=== PATIENT | female | born 1990 | race Caucasian/White ===

== ENCOUNTER 2019-03-04 13:31 | Emergency (ER) | payer OTHER, SELFPAY ==
[2019-03-04 13:32] VITALS: BP 165/95; PULSE 89; RESP 16; TEMP 36.8; O2SAT 97; BMI 34.0
--- NOTE | 2019-03-04 14:24 | CT_ITS ---
STUDY: CT BRAIN WITHOUT CONTRAST REASON FOR EXAM: Female, 29 years old. RADIATION DOSAGE (If Supplied By Facility): CTDIvol = ( 44.99 ) mGy, DLP = ( 779.24 ) mGycm TECHNIQUE: Transaxial CT imaging of the brain was performed without administration of intravenous contrast material. Individualized dose optimization techniques were used for this CT. COMPARISON: No relevant priors. FINDINGS: Normal soft tissue structures. Intact skull base and calvarium. Normal size ventricles and extra-axial spaces for the patient's age. Normal white matter tracts of the cerebral hemispheres. Normal basal ganglia and thalami. Normal brainstem. Normal cerebellum. There is no intracranial hemorrhage. There are no findings of an acute ischemic infarction. There is minimal air-fluid level within the right maxillary sinus. The rest of the sinuses including mastoid air cells and orbits are unremarkable CT/Brain/Head without Contrast IMPRESSION: Negative study except for minimal air fluid level right maxillary sinus. Electronically Signed: Summer Lacey, at 15:04 EDT Tel , Service support ,
--- NOTE | 2019-03-04 14:26 | ED.VIS.INJ ---
History of Present Illness Chief Complaint: Fall Informant: Patient Onset: Yesterday - around 18 hrs [employer] Mechanism/Context: Fall, Trip Quality of Pain: Aching Location: head, right buttock, right upper arm, mid-back Current Severity: Moderate Maximum Severity: Moderate Worsened by: sitting Relieved by: leaving affected areas alone Associated Symptoms: - - nausea, headache. Negative for: Parasthesias, Weakness, Loss of function, Inability to ambulate, Loss of consciousness, Amnesia Narrative: Patient was walking down some narrow, old ceramic tile steps and slipped, while taking the garbage out. She fell back and hit the right side of her head, in addition to her right buttock and her right upper arm. She has been having pain since then but did not feel nauseated until this morning. She feels very nauseated right now. She has not vomited. No focal neurologic symptoms. No shortness of breath or pleuritic discomfort with regards to her mid back pain. - Past Medical History (1) Seasonal allergies Status: Chronic (2) Anxiety Status: Chronic Past Medical History - Allergies and Home Meds Allergies/Adverse Reactions: Allergies mushroom Allergy (Verified 03/04/19 13:35) Anaphylaxis Sulfa (Sulfonamide Antibiotics) Allergy (Verified 03/04/19 13:35) Unknown BLUE CHEESE Allergy (Uncoded 03/04/19 13:35) Anaphylaxis Primary Care Physician: Yanick Jacobo MD [Primary Care Provider] - Smoking Status: Never smoker Drugs: None Review of Systems General: Denies: Chills, Fever Eyes: Denies: Visual changes - bilaterally, Diplopia ENT: Denies: Rhinorrhea, Sore throat Cardiovascular: Denies: Chest pain, Palpitations Respiratory: Denies: Dyspnea, Cough, Dyspnea on exertion Gastrointestinal: Reports: Nausea. Denies: Abdominal pain, Vomiting, Diarrhea, Melena, Hematochezia Musculoskeletal: Reports: Back pain, Extremity Pain Skin: Reports: Abrasions, Wounds Neurological: Reports: Headache. Denies: Weakness, Parasthesia, Numbness Physical Exam Vital Signs/Narrative: Vital Signs Temp Pulse Resp BP Pulse Ox 03/04/19 13:32 98.2 F 89 16 165/95 H 97 Inital Vital Signs reviewed: Yes General: Well nourished, Well developed Head: Normocephalic, Atraumatic Eyes: Perrl, EOMI ENT: TM's clear, No hemotympanum or drainage, No trauma Neck: Nontender, Full ROM Abdomen: Soft, Nontender, Nondistended, Normal bowel sounds Back: Paraspinal Tenderness. Negative for: Spinal Tenderness Extremeties: Full range of motion throughout all 4 extremities. Mildly tender contusion right mid upper arm. Tender right buttock soft tissue, no bony pelvic tenderness. No spinal tenderness in the back, tender in the left paraspinal musculature, mid thoracic. No crepitance or deformity. No evidence of trauma at the mid back area. Skin: Normal color, No rash, Trauma - large contusion w/o hematoma right buttock without sacral tenderness. small contusion/abrasion right lateral mid-upper arm Neurological: Alert, Oriented x3, Cranial nerves II-XII grossly intact, Normal Strength, Normal Sensation, Normal Gait Psychological: Normal affect, Normal Mood - Coma Scale Eye Opening: Spontaneous Motor: Obeys Commands Verbal: Oriented Coma Scale Total: 15 Diagnostic/Tx/Re-eval Clinical Impression(s) from Imaging Studies Brain CT 03/04/19 14:24 IMPRESSION: Negative study except for minimal air fluid level right maxillary sinus. Electronically Signed: Summer Lacey, at 15:04 EDT Tel , Service support , - Medical Decision Making CT had negative. I do not think she needs radiography of the other areas and she is in agreement. She was given Tylenol and Zofran here and a prescription for Zofran, reassured with regards to her head injury, if her symptoms last more than a week she should follow-up with the doctor and take Tylenol and ibuprofen as needed in the meantime. ED Disposition - Plan for ED Patient: Disposition: Home or Assisted Living Diagnosis: Concussion without loss of consciousness, initial encounter, Contusion, buttock, Contusion of right upper arm, initial encounter, Fall from slip, trip, or stumble Instructions: HEAD INJURY, No Wake-Up (Adult) Referrals: Yanick Jacobo MD [Primary Care Provider] - 1 Week if not improving
[2019-03-04] MEDS: Acetaminophen 500 MG Tablet 1000 MG PO (14:29)
[2019-03-04] MEDS: Ondansetron ODT 4 MG Tablet 8 MG PO (14:30)
[2019-03-04 15:32] VITALS: RESP 14
--- NOTE | 2019-03-04 15:33 | ED.RN ---
REVIEWED D/C INSTRUCTIONS, FOLLOW UP CARE, AND S/S THAT WOULD WARRANT A RETURN TO THE ED WITH PT. PT VERBALIZED AN UNDERSTANDING AND DENIES FURTHER QUESTIONS FOR THIS RN. PT SKIN P/W/D, RESP EVEN AND UNLABORED, PT A&O X 3, NO DISTRESS NOTED. PT AMBULATED OUT OF ED, GAIT STEADY.
== END 2019-03-04 15:34 | disposition home or self-care (01) ==
PROVIDERS: Emergency Provider Emergency Medicine; Family Provider Internal Medicine; PCP Internal Medicine
DX: S06.0X0A Concussion without loss of consciousness, initial encounter (principal); S40.021A Contusion of right upper arm, initial encounter; S40.811A Abrasion of right upper arm, initial encounter; S30.0XXA Contusion of lower back and pelvis, initial encounter; R40.2410 Glasgow coma scale score 13-15, unspecified time; W10.9XXA Fall (on) (from) unspecified stairs and steps, initial encounter; Y93.01 Activity, walking, marching and hiking; Y92.9 Unspecified place or not applicable; F41.9 Anxiety disorder, unspecified; Z79.899 Other long term (current) drug therapy
CPT/HCPCS: 70450; 99283

== ENCOUNTER → 2020-04-05 09:27 | Outpatient (CLI) | payer OTHER, SELFPAY ==
[2020-02-10 11:33] VITALS: BMI 36.6
== END ==
PROVIDERS: PCP Internal Medicine
DX: J06.9 Acute upper respiratory infection, unspecified (principal)
CPT/HCPCS: 87635; 94799; U0003

== ENCOUNTER → 2020-06-16 17:56 | Outpatient (CLI) | payer OTHER, SELFPAY ==
[2020-02-10 11:33] VITALS: BMI 36.6
== END ==
PROVIDERS: PCP Internal Medicine
DX: B34.9 Viral infection, unspecified (principal); Z71.89 Other specified counseling
CPT/HCPCS: 87635; C9803; U0003

== ENCOUNTER 2021-04-23 12:03 | Emergency (ER) | payer OTHER, SELFPAY ==
[2020-02-10 11:33] VITALS: BMI 36.6
[2021-04-23 12:04] VITALS: BP 128/98; PULSE 100; RESP 16; TEMP 36.5; O2SAT 100; BMI 32.1
--- NOTE | 2021-04-23 12:34 | RAD_ITS ---
STUDY: X-RAY - LEFT ANKLE REASON FOR EXAM: Female, 31 years old. injury TECHNIQUE: 3 view(s) of the ankle. COMPARISON: None. FINDINGS: Normal visualized distal tibia and fibula. Normal medial and lateral malleoli. Normal tibiotalar articulation and ankle mortise. Normal visualized talus and calcaneus. The visualized subtalar, talonavicular, calcaneocuboid and tarsal articulations are normal. Lateral soft tissue swelling consistent with ligamentous injury. RAD/Ankle min 3 Views IMPRESSION: No acute fracture or dislocation. Lateral soft tissue swelling consistent with ligamentous injury. Electronically Signed: Alejandro Jiang MD at 13:17 EDT Tel , Service support ,
--- NOTE | 2021-04-23 12:34 | RAD_ITS ---
STUDY: X-RAY - LEFT TIBIA AND FIBULA REASON FOR EXAM: Female, 31 years old. injury TECHNIQUE: 2 view(s) of the tibia and fibula were obtained. COMPARISON: None. FINDINGS: Normal visualized tibia. Normal visualized fibula. The soft tissue structures are unremarkable. RAD/Tibia & Fibula 2 Views IMPRESSION: Normal x-ray examination of the tibia and fibula. Electronically Signed: Alejandro Jiang MD at 13:17 EDT Tel , Service support ,
[2021-04-23] MEDS: HYDROcodone Bitartrate/Apap 5/325 Tablet PO (12:49)
--- NOTE | 2021-04-23 14:14 | ED.VIS.LOWEX ---
HPI History of Present Illness HPI Narrative: Patient is a 31-year-old female who states she was camping yesterday. She reports she was walking back to her tent when she stepped in a hole and rolled her left ankle inward. She denies any other trauma such as striking her head or falling. She states she is able to walk on the left leg but has been painful to do so. She reports that with the increased pain and swelling she is concerned that she may have broken the left ankle and therefore comes in for evaluation. Chief Complaint: Lower Extremity Injury PFSH PFS Medical History (Updated 04/23/21 @ 14:[address] 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 Gastritis Left ear hearing loss Lumbar radiculopathy Obesity Paroxysmal supraventricular tachycardia Seasonal allergies Thyroid nodule Home Medications cetirizine 10 mg PO DAILY 03/04/19 [History Last Taken Unknown] fluticasone propionate 2 spray NASAL DAILY 03/04/19 [History Last Taken Unknown] hydrocodone-acetaminophen 1 tab PO Q6H PRN 3 Days #12 tab 04/23/21 [Rx Last Taken Unknown] Allergy/AdvReac Type Severity Reaction Status Date / Time mushroom Allergy Anaphylaxis Verified 04/23/21 12:06 Sulfa (Sulfonamide Allergy Unknown Verified 04/23/21 12:06 Antibiotics) BLUE CHEESE Allergy Anaphylaxis Uncoded 04/23/21 12:06 Family History Mother Hypertension Father Hypertension Other Heart disease Surgical History History of tonsillectomy History of tooth extraction History of tympanoplasty Social History (Updated 02/10/20 @ 11:[address] Juan Gillis MD) Smoking Status: Former smoker quit date: 06/10/14 alcohol intake: current alcohol intake frequency: 0-2 drinks per day ROS ROS ED Constitutional Constitutional ED: Denies fever(s) or subjective ENT ENT ED: Denies sore throat Cardiovascular Cardiovascular: Denies chest pain or palpitations Respiratory/Chest Respiratory/Chest: Denies cough Gastrointestinal Gastrointestinal: Denies abdominal pain, nausea or vomiting Genitourinary Genitourinary ED: Denies dysuria Musculoskeletal Musculoskeletal: Reports other Details: Positive left ankle pain Integumentary Denies Abrasions Neurologic Neurologic: Denies headache(s) or weakness Hematologic/Lymphatic Hematologic/Lymphatic: Denies easy bleeding or easy bruising EXAM Physical Exam Const Vital Signs: 04/23/21 12:04 Temperature 97.7 F L Temperature Source Temporal Pulse Rate 100 Respiratory Rate 16 Blood Pressure 128/98 H Blood Pressure Mean 108 Pulse Ox 100 Oxygen Delivery Method Room Air HEENT normocephalic and atraumatic Eyes PERRL Neck full ROM and supple Chest Wall inspection of chest normal Resp normal respiratory effort and clear to auscultation bilaterally Cardio regular rate, regular rhythm and no murmurs Extremity Extremity Narrative: Left lower extremity is neurovascularly intact. Patient has soft tissue swelling towards the lateral aspect of the left distal ankle. There is no obvious bony deformity or joint effusion. She has pain on palpation along the distal fibula on the left as well. There is also pain on palpation along the proximal tibia/fib region on the left. Achilles tendon is intact. There appears to be slight laxity with inversion of the left ankle compared to right. No pain or deformity or swelling to the feet Neuro oriented x3 and CN's II-XII intact bilaterally Sensorium / Orientation: alert and oriented to person Psych mental status grossly normal Skin Skin Narrative: Patient has soft tissue swelling to the left ankle with ecchymosis to the tib-fib region as documented above on the left Rashes: no rashes MDM MDM MDM Narrative Medical decision making narrative: Patient had a mechanical fall therefore there is no need to perform a cardiac or syncope work-up. X-rays were obtained of the areas are painful and show no acute fracture or dislocation. As patient has mild laxity of the left ankle compared to right I do feel she has a grade 2 ankle sprain. We discussed walking boot and/or crutches. Patient states she has a brace at home and does not want these. Therefore this time patient was advised to wear her brace for the next few weeks be placed on a few days with the pain meds and is safe for discharge. Radiography Diagnostic Testing: Radiology Impression Ankle X-Ray 04/23/21 12:34 IMPRESSION: No acute fracture or dislocation. Lateral soft tissue swelling consistent with ligamentous injury. Electronically Signed: Alejandro Jiang MD at 13:17 EDT Tel , Service support , Tibia/Fibula X-Ray 04/23/21 12:34 IMPRESSION: Normal x-ray examination of the tibia and fibula. Electronically Signed: Alejandro Jiang MD at 13:17 EDT Tel , Service support , Discharge Plan Triage Chief Complaint: Lower Extremity Injury ED Provider: Jim Moody Dx/Rx/DC Orders Clinical Impression: Left ankle sprain Instructions: ED Ankle Sprain (Adult) Prescriptions: New hydrocodone-acetaminophen 5-325 mg tablet 1 tab PO Q6H PRN (Reason: pain) 3 Days Qty: 12 RF: 0 No Action fluticasone propionate 1 SPRAY spray,suspension 2 spray NASAL DAILY RF: 0 cetirizine 10 MG capsule 10 mg PO DAILY RF: 0 Primary Care Provider: Yanick Jacobo Referrals: Yanick Jacobo MD [Primary Care Provider] - Disposition Disposition: Home, Self Care
[2021-04-23 14:28] VITALS: BP 143/100; PULSE 74; RESP 16; O2SAT 100
== END 2021-04-23 14:28 | disposition home or self-care (01) ==
PROVIDERS: Emergency Provider Emergency Medicine; PCP Internal Medicine
DX: S93.402A Sprain of unspecified ligament of left ankle, initial encounter (principal); X50.1XXA Overexertion from prolonged static or awkward postures, initial encounter; Y93.01 Activity, walking, marching and hiking; Y92.9 Unspecified place or not applicable; E66.9 Obesity, unspecified; Z68.32 Body mass index [BMI] 32.0-32.9, adult; H91.92 Unspecified hearing loss, left ear; M54.16 Radiculopathy, lumbar region; Z87.19 Personal history of other diseases of the digestive system; Z87.891 Personal history of nicotine dependence
CPT/HCPCS: 73590; 73610; 99283

== ENCOUNTER 2021-10-12 17:31 | Emergency (ER) | payer OTHER, SELFPAY ==
[2021-10-12 17:32] VITALS: BP 144/92; PULSE 113; RESP 16; TEMP 36.3; O2SAT 100; BMI 33.6
[2021-10-12 17:33] VITALS: BP 144/92; PULSE 113; RESP 16; TEMP 36.3; O2SAT 100
--- NOTE | 2021-10-12 17:41 | ED.VIS.GI ---
HPI HPI - GI History of Present Illness Chief Complaint: Diarrhea Informant: patient Nausea/Vomiting/Emesis GI Symptom: Positive for Nausea; Negative for Vomiting Diarrhea/Melena/Hematochezia GI Symptom: Positive for Diarrhea; Negative for Melena and Hematochezia Associated Symptoms Associated Symptoms: Negative for Dysuria and Hematuria Narrative Narrative: Patient presents with diarrhea that has been constant for the past 6 days. Patient states she has had multiple episodes of watery and yellow diarrhea. Patient denies any melena or hematochezia. Patient admits to some nausea but denies any vomiting. Patient denies any hematemesis or coffee-ground emesis. Patient denies any abdominal pain. Patient denies any dysuria or hematuria. Patient states that she started feeling dizzy today. [facility] Medical History (Updated 10/12/21 @ 18:[address] 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 Gastritis Left ear hearing loss Lumbar radiculopathy Obesity Paroxysmal supraventricular tachycardia Seasonal allergies Thyroid nodule Home Medications cetirizine 10 mg PO DAILY 03/04/19 [History Last Taken Unknown] fluticasone propionate 2 spray NASAL DAILY 03/04/19 [History Last Taken Unknown] hydrocodone-acetaminophen 1 tab PO Q6H PRN 3 Days #12 tab 04/23/21 [Rx Last Taken Unknown] gabapentin 800 mg PO DAILY 10/12/21 [History Last Taken Unknown] Allergy/AdvReac Type Severity Reaction Status Date / Time mushroom Allergy Anaphylaxis Verified 04/23/21 12:06 Sulfa (Sulfonamide Allergy Unknown Verified 04/23/21 12:06 Antibiotics) BLUE CHEESE Allergy Anaphylaxis Uncoded 04/23/21 12:06 Family History Mother Hypertension Father Hypertension Other Heart disease Surgical History History of tonsillectomy History of tooth extraction History of tympanoplasty Social History Smoking Status: Former smoker quit date: 06/10/14 alcohol intake: current alcohol intake frequency: 0-2 drinks per day ROS ROS ED Constitutional Constitutional ED: Denies chills or fever(s) Eyes Eyes: Denies blurry vision or change in vision ENT ENT ED: Denies rhinorrhea or sore throat Cardiovascular Cardiovascular: Denies chest pain or palpitations Respiratory/Chest Respiratory/Chest: Reports dyspnea; Denies cough Gastrointestinal Gastrointestinal: Reports diarrhea and nausea; Denies vomiting Genitourinary Genitourinary ED: Denies dysuria or hematuria Musculoskeletal Musculoskeletal: Denies back pain or neck pain Integumentary Denies abscess or rash Neurologic Neurologic: Denies headache(s) or weakness Allergic/Immunologic Allergic/Immunologic ED: Denies mouth swelling or urticaria EXAM Physical Exam Const Vital Signs: 10/12/21 17:32 10/12/21 17:33 10/12/21 18:03 Temperature 97.4 F L 97.4 F L Temperature Source Temporal Temporal Pulse Rate 113 H 113 H Pulse Rate [Lying] 100 Pulse Rate [Sitting] 105 H Pulse Rate [Standing] 114 H Respiratory Rate 16 16 Blood Pressure 144/92 H 144/92 H Blood Pressure [Lying] 133/90 H Blood Pressure [Sitting] 134/88 H Blood Pressure [Standing] 136/92 H Blood Pressure Mean 109 109 Blood Pressure Mean [Lying] 104 Blood Pressure Mean [Sitting] 103 Blood Pressure Mean [Standing] 106 Pulse Ox 100 100 Oxygen Delivery Method Room Air Room Air Positive well nourished and well developed General Appearance ED: well developed HEENT Reports moist mucous membranes Neck supple and no JVD Resp normal respiratory effort and clear to auscultation bilaterally Cardio regular rate, regular rhythm and no murmurs GI normal to inspection, nondistended, normoactive bowel sounds, non-tender and non-distended Auscultation: normoactive bowel sounds Palpation: soft Extremity normal to inspection General Extremety ED: Negative for edema or tenderness General Extremity: Negative for edema Neuro oriented x3, CN's II-XII intact bilaterally, moves all extremities and no sensory deficits noted Sensorium / Orientation: alert Motor Exam: strength 5/5 throughout Psych mental status grossly normal Skin no rashes or lesions noted MDM MDM MDM Narrative Medical decision making narrative: Patient was given IV fluids. CBC and comprehensive metabolic profile were obtained were within normal limits. Urinalysis does not show any evidence of urinary tract infection. Orthostatic vital signs were obtained and were negative. Patient feels better on reevaluation. Patient was instructed to drink plenty of fluids. Patient was instructed to follow-up with her primary care physician in 5 to 7 days. Patient understood and was agreeable with the plan. All questions were answered. Lab Data Attestation: I reviewed the patient's lab results. Labs: Laboratory Results - last 24 hr 10/12/21 10/12/21 10/12/21 17:53 17:54 17:54 WBC 8.3 RBC 4.69 Hgb 14.4 Hct 41.9 MCV 89.3 MCH 30.7 MCHC 34.4 RDW Std Deviation 43.1 RDW Coeff of Matias 13.2 Plt Count 350 MPV 10.0 Immature Gran % (Auto) 0.200 Neut % (Auto) 48.0 Lymph % (Auto) 42.4 H [place] % (Auto) 7.3 Eos % (Auto) 1.5 Baso % (Auto) 0.6 Absolute Neuts (auto) 4.0 Absolute Lymphs (auto) 3.51 Nucleated RBC % 0 Sodium 139 Potassium 3.5 Chloride 106 Carbon Dioxide 27.0 Anion Gap 6 BUN 18 Creatinine 0.92 Estim Creat Clear Calc 86.95 Est GFR (MDRD) Af Amer 91 Est GFR (MDRD) Non-Af 75 BUN/Creatinine Ratio 19.5 Glucose 102 Calcium 8.7 Total Bilirubin 0.40 AST 20 ALT 26 Alkaline Phosphatase 57 Total Protein 7.9 Albumin 3.8 Globulin 4.1 Albumin/Globulin Ratio 0.9 Urine Color Straw Urine Clarity Clear Urine pH 6.5 Ur Specific [place] 1.010 Urine Protein Negative Urine Glucose (UA) Normal Urine Ketones Negative Urine Occult Blood Negative Urine Nitrite Negative Urine Bilirubin Negative Urine Urobilinogen Normal Ur Leukocyte Esterase Negative Urine RBC 0 SEEN Urine WBC 0 SEEN Ur Squamous Epith Cells 0 SEEN Urine Bacteria 0 SEEN Urine Mucus 0 SEEN Discharge Plan Triage Chief Complaint: Diarrhea ED Provider: Steven Thayer Dx/Rx/DC Orders Clinical Impression: Diarrhea Instructions: ED Diarrhea, Unknown Cause Prescriptions: No Action fluticasone propionate 1 SPRAY spray,suspension 2 spray NASAL DAILY RF: 0 cetirizine 10 MG capsule 10 mg PO DAILY RF: 0 hydrocodone-acetaminophen 5-325 mg tablet 1 tab PO Q6H PRN (Reason: pain) 3 Days Qty: 12 RF: 0 gabapentin 800 mg tablet 800 mg PO DAILY RF: 0 Primary Care Provider: Yanick Jacobo Referrals: Yanick Jacobo MD [Primary Care Provider] - 3-5 Days Disposition Disposition: Home, Self Care
[2021-10-12] MEDS: 0.9% Normal Saline 1,000 ML 1000 ML IV (17:56)
[2021-10-12 18:01] LABS: Bacteria 0 SEEN /hpf (None Seen); Mucous, Urine 0 SEEN /hpf (<or=2+); Red Blood Cells-Urine 0 SEEN /hpf (0-5); Squamous Epithelial Cells - UA 0 SEEN /hpf (5-10); White Blood Cells 0 SEEN /hpf (0-5)
[2021-10-12 18:02] LABS: Absolute Lymphocyte Count 3.51 X10^3/uL (0.83-4.51); Basophil# 0.05 X10^3/uL; Basophil% 0.6 % (0-1); Eosinophil# 0.12 X10^3/uL; Eosinophils% 1.5 % (0-5); Hematocrit 41.9 % (37-47); Hemoglobin 14.4 g/dL (12.0-15.0); Lymphocyte # 3.51 X10^3/ul (0.83-4.51); Lymphocyte % 42.4 % (19-41); Mean Corp Hgb Conc 34.4 g/dL (32-36); Mean Corpuscular Hgb 30.7 pg (27.0-32.0); Mean Corpuscular Volume 89.3 fL (81-99); Monocyte% 7.3 % (0-10); NRBC Flagged by Analyzer 0 % (0-5); Neutrophil # 3.97 X10^3/uL (2.7-7.7); Platelet Count 350 K/mm3 (150-450); RBC Distribution Width CV 13.2 % (11.6-14.6); RBC Distribution Width SD 43.1 fl (35.1-43.9); Red Blood Count 4.69 M/mm3 (4.2-5.4); White Blood Count 8.3 K/mm3 (4.4-11.0)
[2021-10-12 18:03] VITALS: BP 133/90; BP 134/88; BP 136/92; PULSE 100; PULSE 105; PULSE 114
[2021-10-12 18:03] LABS: Color, Urine Straw (Yellow); Glucose, Dipstick Normal (Normal); Ketone-Dipstick Negative (Negative); Leukocyte Esterase-Dipstick Negative /ul (Negative); Nitrite-Dipstick Negative (Negative); Occult Blood-Urine Negative /ul (Negative); Protein-Dipstick Negative (Negative); Urine Bilirubin Dipstick Negative (Negative); Urine Clarity Clear (Clear); Urine Urobilinogen Normal (Normal); Urine pH 6.5 (5.0 - 8.0)
[2021-10-12 18:22] LABS: ALB/GLOB Ratio 0.9 RATIO (0.9-2.4); AST(SGOT) 20 U/L (15-37); Alanine Aminotransfer ALT/SGPT 26 U/L (13-56); Albumin, Serum 3.8 g/dL (3.2-5.0); Alkaline Phosphatase 57 U/L (45-117); Anion Gap 6 (5-15); BUN 18 mg/dL (7-18); BUN/Creat Ratio 19.5 RATIO (10-20); Calcium,Total 8.7 mg/dL (8.5-10.1); Chloride 106 mmol/L (98-107); Creatinine, Serum 0.92 mg/dL (0.55-1.02); EST Glomerular Filtration Rate 75 mL/min (>60); Est Glom Filt Rate - Afr Amer 91 mL/min (>60); Estimated Creatinine Clearance 86.95 ml/min; Globulin 4.1 g/dL (2.2-4.2); Glucose 102 mg/dL (74-106); Potassium 3.5 mmol/L (3.5-5.1); Protein, Total 7.9 g/dL (6.4-8.2); Sodium Level 139 mmol/L (136-145)
[2021-10-12 18:57] VITALS: BP 102/64; PULSE 93; RESP 17; O2SAT 100
== END 2021-10-12 19:00 | disposition home or self-care (01) ==
PROVIDERS: Emergency Provider Emergency Medicine; PCP Internal Medicine; Visit Provider Emergency Medicine
DX: R19.7 Diarrhea, unspecified (principal); R11.2 Nausea with vomiting, unspecified; F41.9 Anxiety disorder, unspecified; Z87.19 Personal history of other diseases of the digestive system; M54.16 Radiculopathy, lumbar region; E66.9 Obesity, unspecified; Z79.899 Other long term (current) drug therapy; Z87.891 Personal history of nicotine dependence; Z68.33 Body mass index [BMI] 33.0-33.9, adult
CPT/HCPCS: 80053; 81001; 85025; 96360; 99284; J7030; A4216

== ENCOUNTER 2022-09-19 07:18 | Inpatient (IN) | payer BC, SELFPAY ==
[2022-09-19] VITALS (49 sets, daily range): BP systolic 109–141; BP diastolic 64–95; PULSE 65–119; TEMP 36.1–37.6; O2SAT 91–100; BMI 41.3
[2022-09-19] MEDS: 0.9% Normal Saline Single 100 ML IV.SOLN. INTRA-UTER (08:32)
--- NOTE | 2022-09-19 08:41 | HP.PCM.OB_ITS ---
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 Depression Family history of hearing loss at age younger than 7 years Gastritis HPV (human papilloma virus) infection Left ear hearing loss Lumbar radiculopathy Obesity Paroxysmal supraventricular tachycardia Seasonal allergies Thyroid nodule Home Medications cetirizine 10 mg capsule 10 mg PO DAILY Check with primary doctor 03/04/19 [H istory Last Taken 09/19/22 05:00 10 mg] fluticasone propionate 50 mcg/actuation nasal spray,suspension 2 spray NASAL DAILY Check with primary doctor 03/04/19 [History Last Taken 09/19/22 05:00] hydrocodone-acetaminophen 5-325mg 5mg-325mg 1 tab PO Q6H PRN pain 3 days #12 tabs 04/23/21 [Rx Last Taken Unknown] gabapentin 800 mg tablet 800 mg PO DAILY 10/12/21 [History Last Taken Unknown] Iron (ferrous sulfate) 250 mg PO/SL QODAY Check with primary doctor 09/19/22 [History Last Taken 09/17/22 21:00 250 mg] PNV 153-FA 400 mcg-om3 35 mg-dha 25 mg-epa 5 mg-fish oil chew tablet ( Gummies) 2 tab PO DAILY Check with primary doctor 09/19/22 [History Last Taken 09/19/22 05:00 2 gummies] aspirin 81 mg tablet,delayed release 81 mg PO DAILY Check with primary doctor 09/19/22 [History Last Taken 09/18/22 21:00 81 mg] folic acid 400 mcg tablet mg PO DAILY Check with primary doctor 09/19/22 [History Last Taken 09/19/22 05:00 unsure] omega 7-yxs-csz-fish oil 1,200 mg (144 mg-216 mg) capsule (Fish Oil) 1,200 cap PO DAILY Check with primary doctor 09/19/22 [History Last Taken 09/19/22 05:00 1200 mg] pyridoxine (vitamin B6) 50 mg tablet 50 mg PO BID Check with primary doctor 09/19/22 [History Last Taken 09/15/22 21:00 50 mg] tumeric 100 mg-gem 150 mg-olive 50 mg-oreg 150 mg-caprylate capsule 500 cap PO DAILY Check with primary doctor 09/19/22 [History Last Taken 09/19/22 05:00 500 mg] Allergy/AdvReac Type Severity Reaction Status Date / Time Food Allergies: Uncoded Allergy Severe Anaphylaxis Verified 08/17/22 13:14 mushroom Allergy Anaphylaxis Verified 04/23/21 12:06 Sulfa (Sulfonamide Allergy Unknown Verified 04/23/21 12:06 Antibiotics) Family History Mother Hypertension Father Hypertension Other Heart disease Surgical History History of tonsillectomy History of tooth extraction History of tympanoplasty Social History Smoking Status: Former smoker quit date: 06/10/14 alcohol intake: current alcohol intake frequency: 0-2 drinks per day History Elective abortions Hx Para 0 Spontaneous abortions Hx # Term Pregnancies Ectopic pregnancies Hx # Pregnancies Multiple births # of living children NST FHR Rate Baby A Baseline: 130s Variability:: Moderate Accelerations:: 15 x 15 Decelerations:: None NST Reactive:: Yes FHR Category:: Category I Uterine Activity:: none Vital Signs Vital Signs Vital Signs: 09/19/22 07:43 09/19/22 07:43 09/19/22 07:43 Temperature Temperature Source Temporal Pulse Rate 93 Blood Pressure 137/95 H BP Systolic 137 BP Diastolic 95 Pulse Ox 09/19/22 07:45 09/19/22 07:45 09/19/22 07:43 Temperature 98.0 F Temperature Source Pulse Rate 118 H Blood Pressure BP Systolic BP Diastolic Pulse Ox 97 Weight Weight: 119.7 kg Body Mass Index (BMI) 41.3 Physical Exam Narrative VE: 1.5/60/-4 Intracervical gonzalez catheter placed w/o difficulty. vertex on exam. Const alert and oriented x3 General Appearance: cooperative HEENT normocephalic GI GI Narrative: Gravid, non tender to palpation. OB / External & Speculum: external exam normal Extremity normal to inspection Skin no rashes or lesions noted Neuro oriented x3 and CN's II-XII intact bilaterally Psych Appearance: grossly normal Labs Labs Labs: Blood Type A POSITIVE Antibody Screen NEGATIVE Hct 39.7 % (37-47) Hgb 13.3 g/dL (12.0-15.0) Assessment & Plan (1) 40 weeks gestation of : (2) BMI greater than 40: (3) Obesity affecting : (4) Encounter for induction of labor: PLAN: Plan Admit to L&D [facility] FHR/TOCO Epidural if requested for pain Monitor VS Anticipate intracervical GONZALEZ placed
[2022-09-19] MEDS: Lactated Ringers 1,000 ML 50 ML IV (09:05)
[2022-09-19 09:18] LABS: Absolute Lymphocyte Count 2.06 X10^3/uL (0.83-4.51); Absolute Neutrophil Count 9.4 X10^3/uL (2.0-7.7); Basophil# 0.05 X10^3/uL; Basophil% 0.4 % (0-1); Eosinophil# 0.15 X10^3/uL; Eosinophils% 1.2 % (0-5); Hematocrit 39.7 % (37-47); Hemoglobin 13.3 g/dL (12.0-15.0); Lymphocyte # 2.06 X10^3/ul (0.83-4.51); Mean Corp Hgb Conc 33.5 g/dL (32-36); Mean Corpuscular Hgb 30.2 pg (27.0-32.0); Mean Platelet Vol. 10.3 fl (6.2-12.0); Monocyte# 1.17 X10^3/uL; Monocyte% 9.1 % (0-10); NRBC Flagged by Analyzer 0 % (0-5); Neutrophil # 9.37 X10^3/uL (2.7-7.7); Neutrophil % 72.5 % (47-70); Platelet Count 281 K/mm3 (150-450); RBC Distribution Width CV 14.3 % (11.6-14.6); RBC Distribution Width SD 46.5 fl (35.1-43.9); Red Blood Count 4.41 M/mm3 (4.2-5.4); White Blood Count 12.9 K/mm3 (4.4-11.0)
[2022-09-19] MEDS: Oxytocin 15 Units/NS 250ml 15 UNITS/250 ML IV.SOLN 2 UNITS IV (10:03)
[2022-09-19] MEDS: Acetaminophen 500 MG Tablet PO ×2 (11:31→22:39)
--- NOTE | 2022-09-19 13:04 | PCM.PN.BLA ---
Progress Note Patient seen at bedside. Vaginal exam performed for//-2. AROM performed clear fluid. IFM and IUPC placed. Continue Pitocin at this time. Anticipate a normal spontaneous vaginal delivery. heart rate category 1 reactive.
[2022-09-19] MEDS: LACTATED RINGERS 500 ML 999 ML IV (13:30)
[2022-09-19] MEDS: fentaNYL-bupivacaine (epidural) 100 ML BAG EPIDURAL ×2 (14:23→19:02)
[2022-09-19] MEDS: Lactated Ringers 1,000 ML 200 ML IV (18:07)
[2022-09-19] MEDS: Ondansetron 4 MG/2 ML Vial IV (19:31)
--- NOTE | 2022-09-19 22:57 | EX.PCM.OBRPT ---
Vaginal Delivery Maternal Presentation Maternal Presentation: Medically Indicated Induction Maternal Presentation: 40 weeks, BMI > 40 Type of Induction: Pitocin, Dupree Bulb and Amniotomy Operative Information Date of Procedure: 09/19/22 Pre-Operative Diagnosis: 40 weeks gestation, BMI >40 Post-Operative Diagnosis: same, live female infant Surgery / Procedure Performed: Vacuum Assisted Vaginal Delivery Type of Anesthesia: Epidural Drain: Dupree to straight drain Estimated Blood Loss: 350 Time of Delivery: 22:28 Findings Description of Procedure: Patient regressed to complete. Had good maternal pushing efforts. Had some deep variable and prolonged decelerations with pushing. Upon my arrival she had good descent with pushing. Patient was counseled on vacuum assisted vaginal delivery. She was counseled on the risks of vacuum use including but not limited to scalp lacerations, vaginal lacerations, subgaleal hemorrhage. Patient and agreed to proceed. With good maternal pushing efforts pelvis was adequate the Dupree was draining epidural anesthesia was found to be adequate estimated weight was 7 and half pounds. The vacuum was placed on the flexion point and vacuum was pumped to green zone at 550 mmHg with 1 maternal push and 1 pull of the vacuum and the infant's head was delivered the vacuum was then released nuchal cord x1 was reduced it was loose. The infant's anterior shoulder was then delivered with gentle downward traction followed by the rest the infant's body. The was placed on the mother's chest. Terminal meconium was noted. Infant was vigorous at time of delivery. Mediate skin to skin was performed. Delayed cord clamping was performed. Nursery team was available for delivery. Placenta was then delivered intact without complication. Second-degree vaginal laceration was appreciated bleeding briskly at the vaginal introitus. It was repaired using 2-0 Vicryl suture multiple [id number] sutures were placed to control the bleeding. Pressure was placed. Bleeding slowed and good hemostasis was appreciated. Presentation: Vertex Amniotic Membrane Rupture Type: Artificial Amniotic Fluid Description: Clear and - (Terminal meconium with delivery) Placental Delivery Description: Spontaneous Placenta Disposition: [facility] Specimen(s) Removed: Placenta Cord Vessel Description: 3 Vessels Cord Entanglement: Around neck x 1, loose Nuchal Cord Compression: With compression A Gender: Female (1 minute): 8 (5 minute): 9 Delayed Cord Clamping: Yes Post Vaginal Delivery Medications Given After Delivery: IV Pitocin Episiotomy Description: None Laceration: Vaginal Extension/lac and 2nd degree Complication Complications: None
[2022-09-20] VITALS (24 sets, daily range): BP systolic 97–121; BP diastolic 54–76; PULSE 74–117; RESP 14–17; TEMP 36.6–37.1; O2SAT 91–99
[2022-09-20] MEDS: Ibuprofen 600 MG Tablet PO ×4 (02:03→21:01)
[2022-09-20 06:24] LABS: Hematocrit 31.9 % (37-47); Hemoglobin 10.7 g/dL (12.0-15.0); Mean Corp Hgb Conc 33.5 g/dL (32-36); Mean Corpuscular Hgb 30.1 pg (27.0-32.0); Mean Corpuscular Volume 89.9 fL (81-99); Mean Platelet Vol. 10.2 fl (6.2-12.0); Platelet Count 256 K/mm3 (150-450); RBC Distribution Width CV 14.3 % (11.6-14.6); RBC Distribution Width SD 46.6 fl (35.1-43.9); Red Blood Count 3.55 M/mm3 (4.2-5.4); White Blood Count 19.3 K/mm3 (4.4-11.0)
--- NOTE | 2022-09-20 08:28 | PN.OBGYN_ITS ---
Subjective Subjective Patient seen at bedside. Resting quietly. with support. Ambulating and voiding without difficulty. Lochia minimal. Desires discharge home tomorrow. Objective Data Objective Data Vital Signs: Vital Signs Temp Pulse Resp BP Pulse Ox O2 Del Method 97.9 F 100 16 104/60 96 Room Air 09/20/22 00:45 09/20/22 03:34 09/20/22 03:34 09/20/22 03:34 09/20/22 03:34 09/20/22 03:34 Oxygen Delivery Method Room Air Weight: 263 lb 14.293 oz Body Mass Index (BMI) 41.3 Intake & Output: Intake and Output for Last 24 Hours 09/18/22 09/19/22 09/20/22 23:59 23:59 23:59 Intake Total 3545.53 / 3545.53 154.47 / 154.47 Output Total 2800 / 2800 1300 / 1300 Balance 745.53 / 745.53 -1145.53 / -1145.53 Lab / Micro Data Result Diagrams: 09/20/22 06:15 Labs: Laboratory Results - last 24 hr 09/19/22 09:05: WBC 12.9 H, RBC 4.41, Hgb 13.3, Hct 39.7, MCV 90.0, MCH 30.2, MCHC 33.5, RDW Std Deviation 46.5 H, RDW Coeff of Matias 14.3, Plt Count 281, MPV 10.3, Immature Gran % (Auto) 0.800, Neut % (Auto) 72.5 H, Lymph % (Auto) 16.0 L, [place] % (Auto) 9.1, Eos % (Auto) 1.2, Baso % (Auto) 0.4, Absolute Neuts (auto) 9.4 H, Absolute Lymphs (auto) 2.06, Nucleated RBC % 0 09/19/22 09:05: Blood Type A POSITIVE, Antibody Screen NEGATIVE 09/20/22 06:15: WBC 19.3 H, RBC 3.55 L, Hgb 10.7 L, Hct 31.9 L, MCV 89.9, MCH 30.1, MCHC 33.5, RDW Std Deviation 46.6 H, RDW Coeff of Matias 14.3, Plt Count 256, MPV 10.2 ROS Eyes Eyes: Denies blurry vision, change in vision or spots in vision ENT HEENT: Denies dizziness or headache(s) Cardiovascular Cardiovascular: Denies abdominal pain, chest pain or dyspnea Respiratory/Chest Respiratory/Chest: Denies cough, dyspnea, shortness of breath at rest or shortness of breath with exertion Gastrointestinal Gastrointestinal: Denies abdominal pain, diarrhea or vomiting Genitourinary Genitourinary: Denies change in urinary stream, difficulty urinating or dysuria Musculoskeletal Musculoskeletal: Reports none Integumentary Integumentary: Denies rash Neurologic Neurologic: Denies dizziness, headache(s), memory loss or weakness Assessment & Plan (1) 40 weeks gestation of : (2) BMI greater than 40: (3) Obesity affecting : (4) (spontaneous vaginal delivery): (5) Laceration, obstetrical, second degree: PLAN: Plan PPD 1 Routine care support Anticipate discharge home tomorrow
[2022-09-20] MEDS: Senna/Docusate Sodium 1 Tablet PO (08:30)
[2022-09-20] MEDS: Acetaminophen 500 MG Tablet 1000 MG PO ×3 (08:31→21:01)
[2022-09-20] MEDS: Fluticasone 0.05% 1 SPRAY NASAL.SRY 2 SPRAY NASAL (10:01)
--- NOTE | 2022-09-20 10:50 | NURSING ---
Keeley Morrow CNM returns this nurses call about patients medication. Pt does not take claritin but takes zyrtec and has her own here. CNM states that it is fine for patient to take her own zyrtec. will send patients own zyrtec to pharmacy for verification
[2022-09-21 03:00] VITALS: BP 119/75; PULSE 94; RESP 16; TEMP 36.8
[2022-09-21] MEDS: Acetaminophen 500 MG Tablet 1000 MG PO ×2 (03:05→09:30)
[2022-09-21] MEDS: Ibuprofen 600 MG Tablet PO ×2 (03:05→09:29)
--- NOTE | 2022-09-21 08:43 | PCM.PN.OB ---
Subjective Subjective Doing well. Some cramping and vaginal soreness. She desires to go home today. She is ambulating and voiding without difficulty. Tolerating a diet without nausea or vomiting. Lochia is normal. She is breast-feeding. She denies chest pain, shortness of breath, lightheadedness, dizziness, leg pain. Objective Data Objective Data Vital Signs: Vital Signs Temp Pulse Resp BP Pulse Ox O2 Del Method 98.3 F 94 16 119/75 98 Room Air 09/21/22 03:00 09/21/22 03:00 09/21/22 03:00 09/21/22 03:00 09/20/22 16:00 09/20/22 16:00 Oxygen Delivery Method Room Air Weight: 263 lb 14.293 oz Body Mass Index (BMI) 41.3 Intake & Output: Intake and Output for Last 24 Hours 09/19/22 09/20/22 09/21/22 23:59 23:59 23:59 Intake Total 3545.53 / 3545.53 154.47 / 154.47 Output Total 2800 / 2800 1300 / 1300 Balance 745.53 / 745.53 -1145.53 / -1145.53 Lab / Micro Data Result Diagrams: 09/20/22 06:15 Physical Exam Const alert and no apparent distress Constitutional Narrative: Nursing baby General Appearance: comfortable Assessment & Plan (1) (spontaneous vaginal delivery): PLAN: PPD2 s/p . Doing well and desires discharge. Meeting milestones to go home and d/c instructions reviewed. (2) Laceration, obstetrical, second degree:
--- NOTE | 2022-09-21 08:46 | DCINST_ITS ---
Discharge Instructions Diet Discharge Diet: No restrictions Activity Discharge Activity: May Shower May resume sexual activity in: 6 weeks Ice area for (Minutes): 15 Weight Bearing Status: Weight bearing as tolerated Lifting Restrictions: nothing heavier than baby Dressing / Incision Call your doctor if your incision/area has: Continuous Slow Oozing, Sudden Increased Bleeding, Increased Pain/ Swelling, Increased Redness, Foul Smelling Discharge and Swelling at the incision site Call your doctor if you observe: Fever of 101 or Higher, Coldness, Increased Pain, Numbness or Tingling, Change in Color, Inability to urinate, Inability to have a bowel movement, Using more than 1 pad per hour, Shortness of breath, Dizziness, Fainting spells, Swelling in the ankles, Chest pain, Increased palpitations (irregular heartbeat), Calf discomfort and Uncontrolled pain Cleanse incision/area with: Soap & Water Follow Up Care When: 1-2 weeks for early 6 weeks for Test Results: Test results from this visit will be discussed in further detail at your follow- up appointment, if applicable. Discharge Plan Admission Admit Date/Time: 09/19/22 07:18 Primary Reason for Your Visit: delivery Attending Provider: Natasha Adams Primary Care Provider: Yanick Jacobo Instructions Patient Instructions: After a Vaginal Discharge Orders/Prescriptions Prescriptions: New ibuprofen 600 mg tablet 600 mg PO Q6H PRN (Reason: pain) Qty: 30 0RF Continued fluticasone propionate 1 SPRAY spray,suspension 2 spray NASAL DAILY Rx Instructions: 1 spray per nostril cetirizine 10 MG capsule 10 mg PO DAILY hydrocodone-acetaminophen 5-325 mg tablet 1 tab PO Q6H PRN (Reason: pain) 3 Days Qty: 12 0RF gabapentin 800 mg tablet 800 mg PO DAILY Label Comments: take 1 tablet by mouth three times a day pyridoxine (vitamin B6) 50 mg tablet 50 mg PO BID Label Comments: take 1 tablet by mouth twice a day omega 6-pkn-dab-fish oil [Fish Oil] 1,200 (144-216) mg Capsule 1,200 cap PO DAILY lhcdctw-omko-qupbk-oreg-capryl 100 mg-150 mg- 50 mg-150 mg Capsule 500 cap PO DAILY Gummies 400 mcg-35 mg- 25 mg-5 mg Tablet,Chewable 2 tab PO DAILY Iron (ferrous sulfate) 250 mg 250 mg PO/SL QODAY folic acid 400 mcg Tablet PO DAILY Rx Instructions: Pt is unsure of dose Discontinued aspirin [Aspir-81] 81 mg Tablet,Delayed Release (Dr/Ec) 81 mg PO DAILY Referrals / Follow Up: Yanick Jacobo MD [Primary Care Provider] - Disposition Disposition (needs filled in before D/C Order can be placed): Home, Self Care
[2022-09-21] MEDS: Benzocaine/Lanolin/Aloe Vera 1 SPRAY EACH TOPICAL (09:25)
[2022-09-21] MEDS: CETIRIZINE HCL 10 MG TABLET PO (09:27)
[2022-09-21] MEDS: Fluticasone 0.05% 1 SPRAY NASAL.SRY 2 SPRAY NASAL (09:28)
[2022-09-21] MEDS: Senna/Docusate Sodium 1 Tablet PO (09:31)
[2022-09-21] MEDS: Ferrous Sulfate 325 MG Tablet PO (09:32)
[2022-09-21 10:00] VITALS: BP 118/85; PULSE 87; RESP 18; TEMP 36.7
== END 2022-09-21 14:05 | disposition home or self-care (01) | DRG 807 ==
PROVIDERS: Admitting Provider Obstetrics & Gynecology; PCP Internal Medicine; Referring Provider Obstetrics & Gynecology; Visit Provider Obstetrics & Gynecology
DX: O99.214 Obesity complicating childbirth (principal); Z37.0 Single live birth; E66.9 Obesity, unspecified; O69.81X0 Labor and delivery complicated by cord around neck, without compression, not applicable or unspecified; O70.1 Second degree perineal laceration during delivery; O76 Abnormality in fetal heart rate and rhythm complicating labor and delivery; O77.0 Labor and delivery complicated by meconium in amniotic fluid; Z3A.40 40 weeks gestation of pregnancy; Z79.82 Long term (current) use of aspirin; Z87.891 Personal history of nicotine dependence
CPT/HCPCS: 59025; 59050; 85025; 85027; 86850; 86900; 86901; 99221; J7120; G0378; J2405

== ENCOUNTER 2024-05-14 05:10 | Outpatient (CLI) | payer OTHER, SELFPAY ==
[2024-05-14 05:30] VITALS: PULSE 106; O2SAT 96
[2024-05-14 05:31] VITALS: RESP 14; TEMP 36.4
[2024-05-14 05:35] VITALS: BP 123/82; PULSE 111
[2024-05-14 05:36] VITALS: BMI 40.4
[2024-05-14 06:19] VITALS: PULSE 83; O2SAT 96
--- NOTE | 2024-05-14 07:39 | OB.TRI.HP_ITS ---
HPI - General General Date of Admission: 05/14/24 Date of Service: 05/14/24 Chief Complaint: contractions HPI Narrative SHANT NETTLES, is a 34 F who presents increasing contractions. Cervix high and not reachable. No presenting part in pelvis. Few contractions. Cat I tracing. Discharged home with labor precautions. [facility] Medical History (Updated 05/14/24 @ 07:[address] 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 Gastritis Paroxysmal supraventricular tachycardia Thyroid nodule Obesity Anxiety Seasonal allergies Home Medications ?Medication ?Instructions ?Recorded ?Last Taken ?Type cetirizine 10 mg capsule 10 mg PO DAILY Check with primary 03/04/19 09/19/22 05:00 History doctor 10 mg fluticasone propionate 50 2 spray NASAL DAILY Check with 03/04/19 09/19/22 05:00 History mcg/actuation nasal primary doctor spray,suspension Iron (ferrous sulfate) 250 mg PO/SL QODAY Check with 09/19/22 09/17/22 21:00 History primary doctor 250 mg PNV 153-FA 400 mcg-om3 35 mg-dha 2 tab PO DAILY Check with primary 09/19/22 09/19/22 05:00 History 25 mg-epa 5 mg-fish oil chew doctor 2 gummies tablet ( Gummies) folic acid 400 mcg tablet 400 mcg PO DAILY Check with 09/19/22 09/19/22 05:00 H istory primary doctor unsure omega 1-gbc-shn-fish oil 1,200 mg 1,200 cap PO DAILY Check with 09/19/22 09/19/22 05:00 History (144 mg-216 mg) capsule (Fish Oil) primary doctor 1200 mg pyridoxine (vitamin B6) 50 mg 50 mg PO BID Check with primary 09/19/22 09/15/22 21:00 History tablet doctor 50 mg turmeric 100 mg-gem 150 500 cap PO DAILY Check with 09/19/22 09/19/22 05:00 History mg-olive 50 mg-oreg 150 mg-capryl primary doctor 500 mg capsule Allergy/AdvReac Type Severity Reaction Status Date / Time Food Allergies: Uncoded Allergy Severe Anaphylaxis Verified 05/14/24 05:23 mushroom Allergy Anaphylaxis Verified 05/14/24 05:23 Sulfa (Sulfonamide Allergy Unknown Verified 05/14/24 05:23 Antibiotics) Family History Mother Hypertension Father Hypertension Other Heart disease Surgical History History of tooth extraction History of tympanoplasty History of tonsillectomy Social History Smoking Status: Former smoker quit date: 06/10/14 alcohol intake: current alcohol intake frequency: 0-2 drinks per day History Elective abortions Hx Para 0 Spontaneous abortions Hx # Term Pregnancies Ectopic pregnancies Hx # Pregnancies Multiple births # of living children NST FHR Rate Baby A Baseline: 135 Variability:: Moderate Accelerations:: 15 x 15 Decelerations:: None NST Reactive:: Yes FHR Category:: Category I Uterine Activity:: occasional Assessment & Plan (1) False labor: (2) 37 weeks gestation of : PLAN: Plan Discharge home
[2024-05-14 11:12] VITALS: BP 105/61; PULSE 83; O2SAT 94
[2024-05-14 11:13] VITALS: PULSE 88; O2SAT 98
== END 2024-05-14 07:23 | disposition home or self-care (01) ==
LOC: WPOUT 05:19 → WP 05:20
PROVIDERS: PCP Internal Medicine; Visit Provider Obstetrics & Gynecology
DX: O47.1 False labor at or after 37 completed weeks of gestation (principal); Z3A.37 37 weeks gestation of pregnancy
CPT/HCPCS: 59025; 59050; 99221; G0378

== ENCOUNTER 2024-06-01 03:39 | Inpatient (IN) | payer OTHER, SELFPAY ==
[2024-06-01] VITALS (75 sets, daily range): BP systolic 101–135; BP diastolic 57–87; PULSE 61–108; RESP 16–20; TEMP 36–37.8; O2SAT 93–100; BMI 40.6
[2024-06-01] MEDS: Lactated Ringers 1,000 ML 999 ML IV (04:05)
[2024-06-01] MEDS: Lactated Ringers 1,000 ML 200 ML IV ×2 (04:05→10:16)
--- NOTE | 2024-06-01 04:22 | HP.PCM.OB_ITS ---
HPI - General General Date of Admission: 06/01/24 Date of Service: 06/01/24 Chief Complaint: contractions HPI Narrative SHANT NETTLES, is a 34 F who presents contractions increasing in frequency. Cervical change after observation for 2 hours Maternal Data Information Final DAVID: 06/03/24 Gestational age: 39+5 [facility] Medical History (Updated 06/01/24 @ 05:[address] 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 Gastritis Paroxysmal supraventricular tachycardia Thyroid nodule Obesity Anxiety Seasonal allergies Home Medications ?Medication ?Instructions ?Recorded ?Last Taken ?Type cetirizine 10 mg capsule 10 mg PO DAILY Check with primary 03/04/19 06/01/24 History doctor fluticasone propionate 50 2 spray NASAL DAILY Check with 03/04/19 06/01/24 History mcg/actuation nasal primary doctor spray,suspension Iron (ferrous sulfate) 250 mg PO/SL QODAY Check with 09/19/22 06/01/24 History primary doctor PNV 153-FA 400 mcg-om3 35 mg-dha 2 tab PO DAILY Check with primary 09/19/22 06/01/24 History 25 mg-epa 5 mg-fish oil chew doctor tablet ( Gummies) folic acid 400 mcg tablet 400 mcg PO DAILY Check with 09/19/22 06/01/24 History primary doctor omega 5-vep-uni-fish oil 1,200 mg 1,200 cap PO DAILY Check with 09/19/22 06/01/24 History (144 mg-216 mg) capsule (Fish Oil) primary doctor pyridoxine (vitamin B6) 50 mg 50 mg PO BID Check with primary 09/19/22 06/01/24 History tablet doctor turmeric 100 mg-gem 150 500 cap PO DAILY Check with 09/19/22 06/01/24 History mg-olive 50 mg-oreg 150 mg-capryl primary doctor capsule Allergy/AdvReac Type Severity Reaction Status Date / Time Food Allergies: Uncoded Allergy Severe Anaphylaxis Verified 06/01/24 04:06 mushroom Allergy Anaphylaxis Verified 06/01/24 04:06 Sulfa (Sulfonamide Allergy Unknown Verified 06/01/24 04:06 Antibiotics) Family History Mother Hypertension Father Hypertension Other Heart disease Surgical History History of tooth extraction History of tympanoplasty History of tonsillectomy Social History Smoking Status: Former smoker quit date: 06/10/14 alcohol intake: current alcohol intake frequency: 0-2 drinks per day History 2 Elective abortions Hx Para 1 Spontaneous abortions Hx # Term Pregnancies Ectopic pregnancies Hx # Pregnancies Multiple births # of living children NST FHR Rate Baby A Baseline: 125 Variability:: Moderate Accelerations:: 15 x 15 Decelerations:: None NST Reactive:: Yes FHR Category:: Category I Uterine Activity:: q2-3 ROS Constitutional Constitutional: Denies fatigue, fever(s) or malaise Eyes Eyes: Denies change in vision ENT HEENT: Denies dizziness or headache(s) Cardiovascular Cardiovascular: Denies chest pain, dyspnea or lightheadedness Respiratory/Chest Respiratory/Chest: Denies cough or dyspnea Gastrointestinal Gastrointestinal: Denies change in bowel habits Genitourinary Genitourinary: Denies burning urination or genital lesions Integumentary Integumentary: Denies rash Neurologic Neurologic: Denies confusion, dizziness, headache(s), numbness or weakness Vital Signs Vital Signs Vital Signs: 06/01/24 00:58 06/01/24 00:58 06/01/24 00:58 Temperature Temperature Source Pulse Rate 92 Respiratory Rate Blood Pressure 125/83 H BP Systolic 125 BP Diastolic 83 Pulse Ox 97 06/01/24 00:58 06/01/24 00:58 06/01/24 00:58 Temperature 97.6 F L Temperature Source Temporal Pulse Rate Respiratory Rate 16 Blood Pressure BP Systolic BP Diastolic Pulse Ox 06/01/24 03:20 06/01/24 03:20 Temperature Temperature Source Pulse Rate 81 Respiratory Rate Blood Pressure BP Systolic BP Diastolic Pulse Ox 95 Weight Weight: 117.6 kg Body Mass Index (BMI) 40.6 Physical Exam Const alert and no apparent distress General Appearance: cooperative HEENT normocephalic Resp normal respiratory effort GI soft to palpation GI Narrative: gravid, nontender, appropriate for gestational age Extremity no calf tenderness General Extremity: edema Skin no wounds Rashes: No rashes noted Psych activity/motor behavior normal Labs Labs Labs: Blood Type A POSITIVE Antibody Screen NEGATIVE Hct 37.6 % (37-47) Hgb 12.5 g/dL (12.0-15.0) Syphilis Total Ab Pending Assessment & Plan (1) Active labor at term: (2) 39 weeks gestation of : PLAN: Plan Admit for labor. Epidural prn GBS negative
[2024-06-01 04:31] LABS: Absolute Lymphocyte Count 2.36 X10^3/uL (0.83-4.51); Basophil# 0.04 X10^3/uL; Basophil% 0.3 % (0-1); Eosinophil# 0.11 X10^3/uL; Eosinophils% 0.8 % (0-5); Hematocrit 37.6 % (37-47); Hemoglobin 12.5 g/dL (12.0-15.0); Lymphocyte # 2.36 X10^3/ul (0.83-4.51); Lymphocyte % 17.3 % (19-41); Mean Corp Hgb Conc 33.2 g/dL (32-36); Mean Corpuscular Hgb 29.1 pg (27.0-32.0); Mean Corpuscular Volume 87.6 fL (81-99); Mean Platelet Vol. 11.2 fl (6.2-12.0); Monocyte# 1.04 X10^3/uL; Monocyte% 7.6 % (0-10); NRBC Flagged by Analyzer 0 % (0-5); Neutrophil # 10.01 X10^3/uL (2.7-7.7); Neutrophil % 73.6 % (47-70); Platelet Count 311 K/mm3 (150-450); RBC Distribution Width CV 15.5 % (11.6-14.6); RBC Distribution Width SD 49.1 fl (35.1-43.9); Red Blood Count 4.29 M/mm3 (4.2-5.4); White Blood Count 13.6 K/mm3 (4.4-11.0)
[2024-06-01 05:32] LABS: Syphilis Antibodies Non-reactive
[2024-06-01] MEDS: fentaNYL-bupivacaine (epidural) 100 ML BAG EPIDURAL ×2 (05:40→09:50)
[2024-06-01] MEDS: Ondansetron 4 MG/2 ML Vial IV ×2 (06:17→12:05)
[2024-06-01] MEDS: 0.9% Saline Lock 10 ML Syringe IV ×2 (06:17→17:56)
--- NOTE | 2024-06-01 06:39 | PCM.PN.OB ---
Subjective Subjective AROM for clear fluid. /-2 Cat i tracing. Epidural in place Objective Data Objective Data Vital Signs: Vital Signs Temp Pulse Resp BP Pulse Ox 98.2 F 72 16 115/71 98 06/01/24 06:05 06/01/24 06:11 06/01/24 06:05 06/01/24 06:11 06/01/24 05:33 Weight: 117.6 kg Body Mass Index (BMI) 40.6 Intake & Output: Intake and Output for Last 24 Hours 05/30/24 05/31/24 06/01/24 23:59 23:59 23:59 Intake Total 1000 / 1000 Balance 1000 / 1000 Lab / Micro Data 06/01/24 04:05 Labs: Laboratory Results - last 24 hr 06/01/24 04:05: WBC 13.6 H, RBC 4.29, Hgb 12.5, Hct 37.6, MCV 87.6, MCH 29.1, MCHC 33.2, RDW Std Deviation 49.1 H, RDW Coeff of Matias 15.5 H, Plt Count 311, MPV 11.2, Immature Gran % (Auto) 0.400, Neut % (Auto) 73.6 H, Lymph % (Auto) 17.3 L, [place] % (Auto) 7.6, Eos % (Auto) 0.8, Baso % (Auto) 0.3, Absolute Neuts (auto) 10.0 H, Absolute Lymphs (auto) 2.36, Nucleated RBC % 0, Syphilis Total Ab Non-reactive, Blood Type A POSITIVE, Antibody Screen NEGATIVE Assessment & Plan (1) Active labor at term: (2) 39 weeks gestation of : PLAN: Plan anticipate vaginal delivery GBS negative
[2024-06-01] MEDS: Amnioinfusion- 0.9% NS 1,000 ML IV.SOLN. 1000 ML INTRA-UTER (11:00)
[2024-06-01] MEDS: Oxytocin 15 Units/NS 250ml 15 UNITS/250 ML IV.SOLN 334 UNITS IV (13:08)
--- NOTE | 2024-06-01 13:28 | EX.PCM.OBRPT ---
Assessment & Plan (1) Vaginal delivery: (2) First degree perineal laceration: (3) Meconium in amniotic fluid: Maternal Data Information DAVID Calculator Estimated Delivery Date Method Current WG Current Estimate 06/03/24 Manual 39w 5d Vaginal Delivery Maternal Presentation Maternal Presentation: Active Labor Operative Information Date of Procedure: 06/01/24 Pre-Operative Diagnosis: Active labor at term Post-Operative Diagnosis: , first degree perineal laceration, MEC Surgery / Procedure Performed: Spontaneous Vaginal Delivery Type of Anesthesia: Epidural Estimated Blood Loss: 400 ml Time of Delivery: 13:04 Findings Description of Procedure: Progressed to complete with urge to push. Epidural for pain management. Nursery staff called to delivery for MEC. of viable female over first degree perineal. Large amount of Meconium stained fluid. APGARS 7,9 respectively. head delivered with body immediately forthcoming, CAN x1, reduced. Placed on maternal abdomen, strong cry. Mouth and nares suctioned for secretions. Pitocin started for active 3rd stage management. Cord doubly clamped and cut by FOB after pulsations ceased, delayed cord clamping. Placenta delivered intact via melendez, 3 vessel cord intact. Perineum inspected and revealed 1st degree perineal laceration. Repaired with 3.0 vicryl rapide and epidural Fundus firm and hemostasis achieved. EBL 400ml. Mom and baby stable, planning to breast. Family bonding well. notified of delivery. Presentation: Vertex Amniotic Membrane Rupture Type: Artificial Amniotic Fluid Description: Moderate meconium Placental Delivery Description: Spontaneous Placenta Disposition: [facility] Cord Vessel Description: 3 Vessels Cord Entanglement: Around neck x 1, loose Nuchal Cord Compression: Without compression Infant A Gender: Female (1 minute): 7 (5 minute): 9 Delayed Cord Clamping: Yes Post Vaginal Delivery Medications Given After Delivery: IV Pitocin Episiotomy Description: None Laceration: None Complication Complications: None
[2024-06-01] MEDS: Oxytocin 15 Units/NS 250ml 15 UNITS/250 ML IV.SOLN 83 UNITS IV (13:54)
[2024-06-01] MEDS: Benzocaine/Lanolin/Aloe Vera 85 GM Spray 1 SPRAY TOPICAL (17:54)
[2024-06-01] MEDS: Acetaminophen 500 MG Tablet 1000 MG PO (17:54)
[2024-06-01] MEDS: Ibuprofen 600 MG Tablet PO (17:54)
[2024-06-02 00:45] VITALS: BP 118/78; PULSE 80; RESP 16; TEMP 36.7; O2SAT 97
[2024-06-02] MEDS: Ibuprofen 600 MG Tablet PO ×2 (00:58→07:00)
[2024-06-02] MEDS: Acetaminophen 500 MG Tablet 1000 MG PO ×2 (00:58→07:01)
[2024-06-02 04:37] VITALS: BP 122/79; PULSE 70; RESP 16
[2024-06-02 05:07] LABS: Absolute Lymphocyte Count 2.01 X10^3/uL (0.83-4.51); Absolute Neutrophil Count 12.7 X10^3/uL (2.0-7.7); Basophil# 0.05 X10^3/uL; Basophil% 0.3 % (0-1); Eosinophil# 0.18 X10^3/uL; Eosinophils% 1.1 % (0-5); Hematocrit 34.6 % (37-47); Hemoglobin 11.3 g/dL (12.0-15.0); Lymphocyte # 2.01 X10^3/ul (0.83-4.51); Lymphocyte % 12.7 % (19-41); Mean Corp Hgb Conc 32.7 g/dL (32-36); Mean Corpuscular Volume 88.7 fL (81-99); Monocyte# 0.82 X10^3/uL; Monocyte% 5.2 % (0-10); NRBC Flagged by Analyzer 0 % (0-5); Neutrophil # 12.65 X10^3/uL (2.7-7.7); Neutrophil % 80.3 % (47-70); Platelet Count 245 K/mm3 (150-450); RBC Distribution Width CV 15.7 % (11.6-14.6); RBC Distribution Width SD 50.7 fl (35.1-43.9); White Blood Count 15.8 K/mm3 (4.4-11.0)
--- NOTE | 2024-06-02 07:44 | NURSING ---
pt rude and not wanting to feed baby. states that she does not need any help that she drank a body armor to help bring her milk in and that she does not want in rm. This rn is concerned that baby is not taking in enough with each feeding and expresses this to mother.
[2024-06-02 07:46] VITALS: BP 126/81; PULSE 70; RESP 18; TEMP 36.3; O2SAT 99
[2024-06-02 11:39] VITALS: BP 131/76; PULSE 71; RESP 18; TEMP 36.3; O2SAT 98
--- NOTE | 2024-06-02 13:23 | PCM.PN.OB ---
Subjective Subjective Denies complaints Objective Data Objective Data Vital Signs: Vital Signs Temp Pulse Resp BP Pulse Ox O2 Del Method 97.3 F L 71 18 131/76 H 98 Room Air 06/02/24 11:39 06/02/24 11:39 06/02/24 11:39 06/02/24 11:39 06/02/24 11:39 06/02/24 11:39 Oxygen Delivery Method Room Air Weight: 259 lb 4.218 oz Body Mass Index (BMI) 40.6 Intake & Output: Intake and Output for Last 24 Hours 05/31/24 06/01/24 06/02/24 23:59 23:59 23:59 Intake Total 5060 / 5060 Output Total 2400 / 2400 Balance 2660 / 2660 Lab / Micro Data 06/02/24 04:42 Labs: Laboratory Results - last 24 hr 06/02/24 04:42: WBC 15.8 H, RBC 3.90 L, Hgb 11.3 L, Hct 34.6 L, MCV 88.7, MCH 29.0, MCHC 32.7, RDW Std Deviation 50.7 H, RDW Coeff of Matias 15.7 H, Plt Count 245, MPV 11.0, Immature Gran % (Auto) 0.400, Neut % (Auto) 80.3 H, Lymph % (Auto) 12.7 L, [place] % (Auto) 5.2, Eos % (Auto) 1.1, Baso % (Auto) 0.3, Absolute Neuts (auto) 12.7 H, Absolute Lymphs (auto) 2.01, Nucleated RBC % 0 Physical Exam Const alert, oriented x3 and no apparent distress HEENT normocephalic GI soft to palpation, non-tender and non-distended GI Narrative: fundus firm, mid & below umbilicus Extremity normal to inspection and no calf tenderness Assessment & Plan (1) Vaginal delivery: COMMENT: PPD#1 PLAN: D/c home per patient request
--- NOTE | 2024-06-02 13:23 | PCM.DC.SUM ---
Providers Date of Admission: 06/01/24 Primary Care Physician: Dr. Yanick Jacobo MD Reason For Visit: VAGINAL DELIVERY Diagnosis Discharge Diagnosis (1) Vaginal delivery: Status: Acute Code(s): O80 - Encounter for full-term uncomplicated delivery Plan: D/c home per patient request Medications at Discharge Home Medications cetirizine 10 mg capsule 10 mg PO DAILY Check with primary doctor 03/04/19 fluticasone propionate 50 mcg/actuation nasal spray,suspension 2 spray NASAL DAILY Check with primary doctor 03/04/19 Iron (ferrous sulfate) 250 mg PO/SL QODAY Check with primary doctor 09/19/22 PNV 153-FA 400 mcg-om3 35 mg-dha 25 mg-epa 5 mg-fish oil chew tablet ( Gummies) 2 tab PO DAILY Check with primary doctor 09/19/22 folic acid 400 mcg tablet 400 mcg PO DAILY Check with primary doctor 09/19/22 omega 7-pqo-gqy-fish oil 1,200 mg (144 mg-216 mg) capsule (Fish Oil) 1,200 cap PO DAILY Check with primary doctor 09/19/22 pyridoxine (vitamin B6) 50 mg tablet 50 mg PO BID Check with primary doctor 09/19/22 turmeric 100 mg-gem 150 mg-olive 50 mg-oreg 150 mg-capryl capsule 500 cap PO DAILY Check with primary doctor 09/19/22 acetaminophen 500 mg tablet 1,000 mg (2 x 500 mg) PO Q6H PRN PRN Pain 1-10 Or Fever #0 tabs 06/02/24 ibuprofen 600 mg tablet 600 mg PO Q6H PRN PRN Pain Score 1-10 #0 tabs 06/02/24 Hospital Course Operations None Summary of Care Provided Minutes Spent on Discharge: 15 Weight / BMI Weight Weight: 259 lb 4.218 oz Body Mass Index (BMI) 40.6 ABG / Lab / Microbiology Data 06/02/24 04:42 Laboratory: Laboratory Results - last 24 hr 06/02/24 04:42: WBC 15.8 H, RBC 3.90 L, Hgb 11.3 L, Hct 34.6 L, MCV 88.7, MCH 29.0, MCHC 32.7, RDW Std Deviation 50.7 H, RDW Coeff of Matias 15.7 H, Plt Count 245, MPV 11.0, Immature Gran % (Auto) 0.400, Neut % (Auto) 80.3 H, Lymph % (Auto) 12.7 L, [place] % (Auto) 5.2, Eos % (Auto) 1.1, Baso % (Auto) 0.3, Absolute Neuts (auto) 12.7 H, Absolute Lymphs (auto) 2.01, Nucleated RBC % 0 D/C Instructions Discharge Diet: No restrictions May resume sexual activity in: 6 weeks Weight Bearing Status: Weight bearing as tolerated Call your doctor if you observe: Fever of 101 or Higher, Coldness, Increased Pain, Change in Color, Inability to urinate, Inability to have a bowel movement, Using more than 1 pad per hour, Shortness of breath, Dizziness, Fainting spells, Chest pain, Increased palpitations (irregular heartbeat), Calf discomfort and Uncontrolled pain Please Follow Up With: Alesah Najera CNM When: Follow up in 2 and 6 weeks for visits. Meaningful Use Info Meaningful Use Meaningful Use Diagnoses (Choose all that apply): None applicable Ischemic Stroke Statin Dosing Therapy Reference: STATIN DOSE THERAPY REFERENCE: * Patients > 75 years receive moderate or high dose statin therapy. * Patients 75 years or YOUNGER should receive HIGH intensity statin dose unless contraindicated. You will be required to document reason for non-treatment if statin daily dose does not meet guidelines. HIGH DOSE STATIN THERAPY DAILY Atorvastatin > than or = to 40 mg Rosuvastatin > than or = to 20 mg Amlodipine + Atorvastatin > than or = to 2.5/40 mg Ezetimibe + Simvastatin 10/80 mg Simvastatin 80mg Discharge Plan Admission Admit Date/Time: 06/01/24 03:39 Primary Reason for Your Visit: Vaginal delivery Attending Provider: Alesha Najera Primary Care Provider: Yanick Jacobo Discharge Orders/Prescriptions Prescriptions: New acetaminophen 500 mg Tablet 1,000 mg PO Q6H PRN PRN (Reason: Pain 1-10 Or Fever) Qty: 0 0RF ibuprofen 600 mg Tablet 600 mg PO Q6H PRN PRN (Reason: Pain Score 1-10) Qty: 0 0RF Continued fluticasone propionate 1 SPRAY spray,suspension 2 spray NASAL DAILY Rx Instructions: 1 spray per nostril cetirizine 10 MG capsule 10 mg PO DAILY pyridoxine (vitamin B6) 50 mg tablet 50 mg PO BID Patient Comments: take 1 tablet by mouth twice a day omega 5-riq-xtx-fish oil [Fish Oil] 1,200 (144-216) mg Capsule 1,200 cap PO DAILY lhqvhyqo-iqjh-vgswh-oreg-capry 100 mg-150 mg- 50 mg-150 mg Capsule 500 cap PO DAILY Gummies 400 mcg-35 mg- 25 mg-5 mg Tablet,Chewable 2 tab PO DAILY Iron (ferrous sulfate) 250 mg 250 mg PO/SL QODAY folic acid 400 mcg Tablet 400 mcg PO DAILY Rx Instructions: Pt is unsure of dose Referrals / Follow Up: Yanick Jacobo MD [Primary Care Provider] - Disposition Disposition (needs filled in before D/C Order can be placed): Home, Self Care
--- NOTE | 2024-06-02 14:35 | NURSING ---
1435- pt has a 2 wk and wk apt scheduled already
--- NOTE | 2024-06-02 15:41 | CASEMGMT ---
Social Work Assessment Labor and Delivery Unit Patient Address:[address] [place], [place] [address] [address] Phone number: [phone] Date of Referral: 06/01/24 Time of Referral:? [phone] Referred By: Mary Elder Date of Intervention: 06/02/24 ?? Time of Intervention:? 1114 Reason for Referral:? mental health Sw completed chart review and acknowledges social work consult due to mental health. Sw presented to bedside and introduced self to mother of baby (BOGDAN- Natasha) and father of baby (FORishabh- Ancelmo). Sw explained sw role and completed psychosocial assessment. History obtained from: medical records, MOB and FOB. ?? Household composition: Currently residing in the family home is BOGDAN, MALLORIE, their older daughter (Megan- 20 mos) and now baby. Parents deny any issues or concerns with housing. Patient's parent/guardian status:?BOGDAN states that she and MALLORIE have been together for 8 years after living beside each other. No concerns reported of domestic violence or intimate partner violence. This is second child for parents together. ? Medical History: ?BOGDAN is 34 year old female who is 2, para 1- now 2 following labor and delivery of . BOGDAN received routine care during with [facility]. BOGDAN presented to hospital at 39 weeks gestation and delivered baby via vaginal delivery on 06/01/24. Baby girl, named Shantal Morris, was born weighing 6lb 16oz with apgars of 7 and 9 at one and five minutes of life, respectfully. BOGDAN is pumping milk to feed baby and baby will be followed by Dr. Tsang for pediatrics. Educational Status:?BOGDAN reports to having some college education and FORishabh attended the [email or web address]. 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 Infant Supplies: MOB states that they have obtained all necessary baby supplies, including: car seat, safe sleep space, clothes, diapers and wipes. Childcare/Caregiver(s):? BOGDAN states that she and FORishabh are both the primary caregivers to baby. They are able to provide childcare and do not need a dyer assistant. Transportation:?Both parents have their drivers license and reliable means of transportation. No barriers at this time. ? Programs/Agencies Involved: ?Parents are not connected to any community resources that assist them financially. ?? Children Services/Legal Issues:???No history of prior children services involvement, no issues warranting referral to be made at this time. Behavioral Health Issues: ??Mental Health History:???FORishabh denies mental health history. BOGDAN states that she has been diagnosed with anxiety, depression and did experience depression following the delivery of her first daughter. MOB states that during that time she was anxious and tearful. MOB states that she started her psychotropic medication (zoloft) when she was , but recognizes that she should have started it to help her mental health years prior to that. MOB states that during she switched to celexa, but will go back to zoloft now that baby is born. Substance Use History: Parents deny substance use prior to and during . ?? Family History:Parents deny family substance use or significant mental health diagnoses. ? Drug Screens: NO drug screens observed in chart review. Family/Social Stressors:? Parents deny any issues, concerns or stressors at this time. They are happy baby is born and eager to be discharged at some point today. Concerns expressed by nursing staff that MOB was not waking baby to feed her the recommended 2-3 hours, and had been going longer stretches. Barrel Endshake Adjuster met with MOB to discuss this issue and explained that if baby was not fed every 2-3 and had a significant drop in weight she would not be able to be discharged. then followed up with BOGDAN who stated that when discharged she had intentions of pumping to feed baby, so she initiated pumping while still admitted and syringe feeding baby. Support Systems: MOB identifies that both sets of grandparents are their biggest supports at this time. Depression/Shaken Baby/Safe Sleeping:Sw educated MOB and FOB on signs and symptoms of baby blues and mood and anxiety disorders to be on the lookout for during this period. MOB states that she is aware of what her triggers are and what it feels like to experience those issues. MOB states that she is comfortable discussing these concerns with FOB. FOB states that he would recognize if MOB were struggling and would know how to help and support her. Pam educated parents on shaken baby prevention and ABCs of safe sleep. Parents express understanding. ASSESSMENT:? MOB and baby admitted following labor and delivery. FOB observed to be attentive to baby, changed her diaper and held her lovingly and affectionately. MOB answered questions asked and FOB answered questions when directly asked towards him. MOB with mental health history, which has impacted her journey in the past. MOB states that she feels more prepared this time and feels more competent with what to expect. Parents have natural supports in place and have obtained all necessary baby supplies. PLAN:No other services requested or indicated. MOB and baby to be discharged when medically ready. Parents were provided literature regarding: signs and symptoms of baby blues and mood and anxiety disorders, Help Me Grow, shaken baby prevention, ABCs of safe sleep and a list of county resources that are available for them should any needs present themselves. ? ? Ramonita Mccormack, SALES FORCE DEVELOPER, LEPIDOPTERIST
== END 2024-06-02 14:44 | disposition home or self-care (01) | DRG 807 ==
LOC: WPOUT 03:46 → WP 03:46
PROVIDERS: Obstetrics & Gynecology; Admitting Provider Advanced Practice Midwife; PCP Internal Medicine; Referring Provider Advanced Practice Midwife; Visit Provider Advanced Practice Midwife
DX: O70.0 First degree perineal laceration during delivery (principal); Z37.0 Single live birth; O26.23 Pregnancy care for patient with recurrent pregnancy loss, third trimester; O69.2XX0 Labor and delivery complicated by other cord entanglement, with compression, not applicable or unspecified; O77.0 Labor and delivery complicated by meconium in amniotic fluid; Z87.891 Personal history of nicotine dependence; Z3A.39 39 weeks gestation of pregnancy
CPT/HCPCS: 59025; 59050; 85025; 86780; 86850; 86900; 86901; 99221; J7030; J7120; A4216; G0378; J2405

== ENCOUNTER 2024-11-27 08:51 | Outpatient (CLI) | payer OTHER, SELFPAY ==
--- NOTE | 2024-11-27 08:53 | ECHOD_ITS ---
Reason For Study Reason For Study: FAM HX Procedure This was a 2D Doppler, Color Flow transthoracic echocardiogram. Exam performed in department. Left Ventricle Normal LV size. Left ventricular systolic function is normal. The left ventricular ejection fraction is 60 %. No regional wall motion abnormalities noted. Right Ventricle Normal RV size. Normal systolic function. Atria Normal left atrium. Normal right atrium. Mitral Valve Normal mitral valve. Mild (1+) eccentric mitral valve insufficiency. Tricuspid Valve Normal tricuspid valve. Mild (1+) tricuspid valve insufficiency. Aortic Valve Trisinus/trileaflet aortic valve. Pulmonic Valve Normal pulmonic valve. Great Vessels Normal aortic root. Pericardium/Pleural No pericardial effusion. MMode/2D Measurements & Calculations LVIDd: 4.2 cm IVSd: 0.95 cm LVOT diam: 2.0 cm LVIDs: 2.6 cm LVPWd: 1.0 cm LVOT area: 3.1 cm2 RVDd: 3.3 cm FS: 38.5 % Ao root diam: 2.8 cm LAV(MOD-bp): 42.5 ml LVAd ap4: 29.8 cm2 LAV(MOD-bp) Indexed: 20.1 ml/m2 LVLd ap4: 8.0 cm LAV(MOD-sp2): 39.8 ml EDV(MOD-sp4): 92.5 ml LAV(MOD-sp4): 38.9 ml EDV(sp4-el): 94.7 ml LVAs ap4: 14.5 cm2 LVLs ap4: 6.4 cm ESV(MOD-sp4): 28.4 ml ESV(sp4-el): 27.5 ml EF(MOD-sp4): 69.3 % EF(sp4-el): 71.0 % SV(MOD-sp4): 64.1 ml SV(sp4-el): 67.2 ml LA A4 area: 16.1 cm2 SI(MOD-sp4): 30.3 ml/m2 LA dimension(2D): 3.9 cm RA A4 area: 14.7 cm2 Time Measurements MV dec time: 0.18 sec Doppler Measurements & Calculations MV E max sabas: 81.2 cm/sec Lat Peak E' Sabas: 20.5 cm/sec Med Peak E' Sabas: 17.7 cm/sec MV A max sabas: 84.8 cm/sec E/E' lat: 4.0 E/E' med: 4.6 MV E/A: 0.96 MV V2 max: 87.8 cm/sec Ao V2 max: 135.5 cm/sec MV max P.1 mmHg MV dec slope: 465.6 cm/sec2 Ao max P.4 mmHg MV V2 mean: 64.8 cm/sec Ao V2 mean: 96.1 cm/sec MV mean P.8 mmHg Ao mean P.2 mmHg MV V2 VTI: 25.7 cm Ao V2 VTI: 29.5 cm AV (velocity ratio): 0.90 MVA(VTI): 3.1 cm2 MICHAEL(I,D): 2.7 cm2 MICHAEL(V,D): 2.7 cm2 LV V1 max: 120.6 cm/sec SV(LVOT): 80.9 ml PA V2 max: 96.2 cm/sec LV V1 max P.8 mmHg PA V2 mean: 70.4 cm/sec LV V1 mean P.3 mmHg LV V1 mean: 86.6 cm/sec LV V1 VTI: 26.5 cm TR max sabas: 218.2 cm/sec TR max P.1 mmHg ECHO/Echo Complete Interpretation Summary Normal LV size. Left ventricular systolic function is normal. The left ventricular ejection fraction is 60 %. Mild (1+) eccentric mitral valve insufficiency. Ordering Physician: Irene Coffman Referring Physician: Irene Coffman Performed By: Rula Ga RCS
== END 2024-11-27 23:59 | disposition home or self-care (01) ==
LOC: CVS 08:52
PROVIDERS: PCP Internal Medicine; Referring Provider Emergency Medicine; Visit Provider Emergency Medicine
DX: I34.0 Nonrheumatic mitral (valve) insufficiency (principal); Z82.79 Family history of other congenital malformations, deformations and chromosomal abnormalities
CPT/HCPCS: 93306